=== PATIENT | male | born 1945 | race Caucasian/White ===

== ENCOUNTER 2017-05-29 23:39 | Observation (INO) | payer OTHER ==
[~2017-05-29] VITALS: Ht 180.3 cm; Wt 90.0 kg
[~2017-05-29 23:39] MED LIST: ADVAI100I PO; ASPI325T PO; ATRO17AE INH; CARV25TA OR; DUONI NEB; FURO20TA PO; LEVA750T PO; LISI-360 PO; POTA10IN2 PO; PRED10PA PO
[2017-05-29 23:42] VITALS: BP 129/66; PULSE 97; RESP 28; TEMP 98.4; O2SAT 90
[2017-05-29 23:50] VITALS: O2SAT 92
--- NOTE | 2017-05-29 23:50 | PD ---
HPI Chief Complaint: Respiratory Distress Time Seen by Provider: 23:48 Travel History International Travel<30 days: No Contact w/Intl Traveler<30days: No Traveled to known affect area: No History of Present Illness HPI 71-year-old male presents to the emergency department EMS transport from home for persistent worsening shortness of breath with history of COPD and pacemaker. Patient has medications at home providing no relief. En route to the hospital patient received Solu-Medrol and DuoNeb updrafts. No known reported fever. Patient with productive cough of yellow sputum. No report of chest pain. PFSH Past Medical History Narrative Medical No tobacco use COPD CAD pacemaker; nursing notes reviewed Arthritis: Yes Asthma: No Blood Disorders: No Anxiety: No Depression: No Heart Rhythm Problems: Yes Cancer: No Cardiovascular Problems: No High Cholesterol: No Chemotherapy: No Chest Pain: No Congestive Heart Failure: No COPD: Yes Cerebrovascular Accident: No Coronary Artery Disease: Yes Diabetes: No Diminished Hearing: No Endocrine: No GERD: No Genitourinary: No Hiatal Hernia: No Hypertension: Yes Immune Disorder: No Kidney Stones: No Musculoskeletal: No Neurologic: No Psychiatric: No Reproductive: No Respiratory: Yes Immunizations Current: Yes Migraines: No Pneumonia: Yes Radiation Therapy: No Renal Failure: No Seizures: No Sickle Cell Disease: No Sleep Apnea: No Thyroid Disease: No Ulcer: No Past Surgical History Abdominal Surgery: No AICD: Yes Arteriovenous Shunt: No Cardiac Surgery: No Ear Surgery: No Endocrine Surgery: No Eye Surgery: No Genitourinary Surgery: No Gynecologic Surgery: No Insulin Pump: No Joint Replacement: No Oral Surgery: No Pacemaker: Yes Thoracic Surgery: No Other Surgery: Yes Social History Alcohol Use: Yes (APPROX 1 CASE PER WEEK) Tobacco Use: No Substance Use: No Allergies-Medications (Allergen,Severity, Reaction): Coded Allergies: No Known Allergies (Verified Adverse Reaction, Unknown, 05/30/17) Reported Meds & Prescriptions Reported Meds & Active Scripts Active Reported Potassium Chloride ER (Potassium Chloride) 20 Meq Tab 20 Meq PO DAILY Aspirin 325 Mg Tab 325 Mg PO DAILY Vitamin D-[address] (Cholecalciferol) 1,000 Unit Tab 3,000 Units PO DAILY Albuterol Neb (Albuterol Sulfate) 2.5 Mg/3 Ml Neb 2.5 Mg NEB Q4HR NEB PRN Atorvastatin (Atorvastatin Calcium) 40 Mg Tab 40 Mg PO HS Furosemide 40 Mg Tab 40 Mg PO DAILY Lisinopril 20 Mg Tab 20 Mg PO DAILY Carvedilol 25 Mg Tab 25 Mg PO BID Advair Diskus Inh (Fluticasone-Salmeterol Inh) 100-50 Mcg/Blist Aer 1 Puff INH BID Rinse mouth after use. Review of Systems Except as stated in HPI: all other systems reviewed are Neg Physical Exam Narrative GENERAL: Well-developed well-nourished male in obvious respiratory distress with work of breathing all receiving nebulized treatment SKIN: Warm and dry. HEAD: Normocephalic. EYES: No scleral icterus. No injection or drainage. NECK: Supple, trachea midline. No JVD or lymphadenopathy. CARDIOVASCULAR: Regular rate and rhythm without murmurs, gallops, or rubs. RESPIRATORY: Breath sounds equal bilaterally diminished with expiratory wheeze throughout. No accessory muscle use. GASTROINTESTINAL: Abdomen soft, non-tender, nondistended. MUSCULOSKELETAL: No cyanosis, or edema. BACK: Nontender without obvious deformity. No CVA tenderness. Data Data Last Documented VS Vital Signs Date Time Temp Pulse Resp B/P (MAP) Pulse Ox O2 Delivery O2 Flow Rate FiO2 05/30/17 01:19 73 20 112/55 (74) 96 Nasal Cannula 3.00 05/29/17 23:42 98.4 Orders Orders Complete Blood Count With Diff (05/29/17 23:49) Comprehensive Metabolic Panel (05/29/17 23:49) B-Type Natriuretic Peptide (05/29/17 23:49) Act Partial Throm Time (Ptt) (05/29/17 23:49) Prothrombin Time / Inr (Pt) (05/29/17 23:49) Magnesium (Mg) (05/29/17 23:49) Ckmb (Isoenzyme) Profile (05/29/17 23:49) Troponin I (05/29/17 23:49) Blood Culture (05/29/17 23:49) Iv Access Insert/Monitor (05/29/17 23:49) Electrocardiogram (05/29/17 23:49) Ecg Monitoring (05/29/17 23:49) Oximetry (05/29/17 23:49) Oxygen Administration (05/29/17 23:49) Chest, Single Ap (05/29/17 23:49) Sodium Chloride 0.9% Flush (Ns Flush) (05/30/17 00:00) Albuterol-Ipratropium Neb (Duoneb Neb) (05/30/17 00:00) Lactic Acid (05/29/17 23:49) CKMB (05/29/17 23:59) CKMB% (05/29/17 23:59) Labs Laboratory Tests Test 05/29/17 23:59 White Blood Count 7.5 TH/MM3 Red Blood Count 4.99 MIL/MM3 Hemoglobin 15.8 GM/DL Hematocrit 47.2 % Mean Corpuscular Volume 94.6 FL Mean Corpuscular Hemoglobin 31.7 PG Mean Corpuscular Hemoglobin Concent 33.5 % Red Cell Distribution Width 14.0 % Platelet Count 133 TH/MM3 Mean Platelet Volume 10.2 FL Neutrophils (%) (Auto) 55.8 % Lymphocytes (%) (Auto) 21.5 % Monocytes (%) (Auto) 10.9 % Eosinophils (%) (Auto) 10.3 % Basophils (%) (Auto) 1.5 % Neutrophils # (Auto) 4.2 TH/MM3 Lymphocytes # (Auto) 1.6 TH/MM3 Monocytes # (Auto) 0.8 TH/MM3 Eosinophils # (Auto) 0.8 TH/MM3 Basophils # (Auto) 0.1 TH/MM3 CBC Comment DIFF FINAL Differential Comment Prothrombin Time 10.7 SEC Prothromb Time International Ratio 1.1 RATIO Activated Partial Thromboplast Time 22.2 SEC Blood Urea Nitrogen 18 MG/DL Creatinine 1.18 MG/DL Random Glucose 154 MG/DL Total Protein 7.2 GM/DL Albumin 3.7 GM/DL Calcium Level 8.2 MG/DL Magnesium Level 2.0 MG/DL Alkaline Phosphatase 65 U/L Aspartate Amino Transf (AST/SGOT) 26 U/L Alanine Aminotransferase (ALT/SGPT) 33 U/L Total Bilirubin 0.5 MG/DL Sodium Level 142 MEQ/L Potassium Level 5.0 MEQ/L Chloride Level 105 MEQ/L Carbon Dioxide Level 31.9 MEQ/L Anion Gap 5 MEQ/L Estimat Glomerular Filtration Rate 61 ML/MIN Lactic Acid Level 0.9 mmol/L Total Creatine Kinase 101 U/L Creatine Kinase MB 0.9 NG/ML Troponin I LESS THAN 0.02 NG/ML B-Type Natriuretic Peptide 6 PG/ML MDM Medical Decision Making Medical Screen Exam Complete: Yes Emergency Medical Condition: Yes Medical Record Reviewed: Yes Interpretation(s) EKG: Electronically ventricular paced rhythm rate 63CBC & BMP Diagram 05/29/17 23:59 Total Protein 7.2, Albumin 3.7, Calcium Level 8.2 L, Magnesium Level 2.0, Alkaline Phosphatase 65, Aspartate Amino Transf (AST/SGOT) 26, Alanine Aminotransferase (ALT/SGPT) 33, Total Bilirubin 0.5 CXR: nad Differential Diagnosis Dyspnea, exacerbation COPD, CHF, PE, pneumonia, ACS, NH Narrative Course Patient placed on cardiac rn IV access obtained patient continues to receive bronchodilator therapy has received IV Solu-Medrol prior to arrival on auscultation patient continues to have tight expiratory wheezing with diminished breath sounds After 3 additional DuoNeb updrafts lung sounds are improved but still continues to have respiratory wheezing BMP 6 not elevated cardiac enzymes within normal limits Patient continues to have wheezing and will be admitted for exacerbation of COPD after 6 updraft treatments and Solu-Medrol Physician Communication Physician Communication discussed with medicine service for admission Diagnosis Primary Impression: COPD exacerbation Dorota Reed MD May 29, 2017 23:50
[2017-05-29 23:53] VITALS: O2SAT 92
[2017-05-29] MEDS: RESP: ALBUTEROL 2.5 MG/IPRATROPIUM 0.5 MG NEB (SCH) INH (23:58)
[2017-05-30] VITALS (11 sets, daily range): BP systolic 101–120; BP diastolic 55–67; PULSE 71–88; RESP 18–24; TEMP 97.7–98.7; O2SAT 90–97
[2017-05-30] MEDS ORDERED: SODIUM CHLORIDE 0.9% FLUSH 10 ML FLUSH IVF PRN
[2017-05-30 00:26] LABS: AUTOMATED NEUTROPHIL # 4.2 TH/MM3 (1.8-7.7); BASOPHIL # 0.1 TH/MM3 (0-0.2); BASOPHIL % 1.5 % (0.0-2.0); EOSINOPHIL # 0.8 TH/MM3 (0-0.4); EOSINOPHIL % 10.3 % (0.0-4.0); HEMATOCRIT 47.2 % (39.0-51.0); HEMOGLOBIN 15.8 GM/DL (13.0-17.0); LYMPH % 21.5 % (9.0-44.0); LYMPHOCYTE # 1.6 TH/MM3 (1.0-4.8); MEAN CELL VOLUME 94.6 FL (80.0-100.0); MEAN CORPUSCULAR HEMOGLOBIN 31.7 PG (27.0-34.0); MEAN CORPUSCULAR HGB CONC 33.5 % (32.0-36.0); MEAN PLATELET VOLUME 10.2 FL (7.0-11.0); MONO % 10.9 % (0.0-8.0); MONOCYTE # 0.8 TH/MM3 (0-0.9); NEUT % 55.8 % (16.0-70.0); PLATELET COUNT 133 TH/MM3 (150-450); RED BLOOD COUNT 4.99 MIL/MM3 (4.50-5.90); WHITE BLOOD COUNT 7.5 TH/MM3 (4.0-11.0)
--- NOTE | 2017-05-30 00:34 | RADRPT ---
EXAM DATE/TIME: 05/30/2017 00:02 [place] COMPARISON: CHEST SINGLE AP, September 14, 2014, 12:43. INDICATIONS : Shortness of breath MEDICAL HISTORY : None. SURGICAL HISTORY : None. ENCOUNTER: Initial ACUITY: 1 day PAIN SCORE: 7/10 LOCATION: Bilateral chest FINDINGS: A single view of the chest demonstrates the lungs to be symmetrically aerated without evidence of mas s, infiltrate or effusion. The cardiomediastinal contours are unremarkable. Osseous structures are intact. There is a pacemaker overlying the left chest. No new or significant changes. CONCLUSION: No acute disease. No significant change has occurred. Gene Tovar MD on May 30, 2017 at 0:31 Board Certified Radiologist. This report was verified electronically.
[2017-05-30 00:37] LABS: INTERNATIONAL NORMALIZED RATIO 1.1 RATIO; PROTHROMBIN TIME - PATIENT 10.7 SEC (9.8-11.6)
[2017-05-30 00:40] LABS: ALBUMIN 3.7 GM/DL (3.4-5.0); ALT (GPT) 33 U/L (12-78); AST (GOT) 26 U/L (15-37); BICARBONATE 31.9 MEQ/L (21.0-32.0); BLOOD UREA NITROGEN 18 MG/DL (7-18); CALCIUM 8.2 MG/DL (8.5-10.1); CHLORIDE 105 MEQ/L (98-107); CREATININE 1.18 MG/DL (0.60-1.30); GLOMERULAR FILTRATION RATE 61 ML/MIN (>89); GLUCOSE,RANDOM 154 MG/DL (74-106); SODIUM (NA) 142 MEQ/L (136-145)
[2017-05-30 00:45] LABS: ALKALINE PHOSPHATASE 65 U/L (45-117); TOTAL BILIRUBIN ADULT 0.5 MG/DL (0.2-1.0); TOTAL PROTEIN 7.2 GM/DL (6.4-8.2); TROPONIN I LESS THAN 0.02 NG/ML (0.02-0.05)
[2017-05-30] MEDS ORDERED: ASPI-183 PO (01:18)
[2017-05-30] MEDS ORDERED: FURO40TA PO (01:18)
[2017-05-30] MEDS ORDERED: ADVA100A INH (01:18)
[2017-05-30] MEDS ORDERED: CARV25TA PO (01:18)
[2017-05-30] MEDS ORDERED: ATOR40TA16 PO (01:18)
[2017-05-30] MEDS ORDERED: POTA-163 PO (01:18)
[2017-05-30] MEDS ORDERED: ALBU0.08 NEB (01:18)
[2017-05-30] MEDS ORDERED: LISI-515 PO (01:18)
[2017-05-30] MEDS ORDERED: VITATAB25 PO (01:18)
[2017-05-30] MEDS ORDERED: MORPHINE SULFATE 2 MG/ML INJ IV PUSH PRN (03:30)
[2017-05-30] MEDS ORDERED: LACTULOSE SYRUP 20 GM/30 ML CUP PO PRN (03:30)
[2017-05-30] MEDS ORDERED: MAGNESIUM HYDROXIDE SUSP 30 ML CUP PO PRN (03:30)
[2017-05-30] MEDS ORDERED: BISACODYL 10 MG SUPP RECTAL PRN (03:30)
[2017-05-30] MEDS ORDERED: ONDANSETRON HCL 4 MG/2 ML VIAL IVP PRN (03:30)
[2017-05-30] MEDS ORDERED: SODIUM CHLORIDE 0.9% FLUSH 10 ML FLUSH IV FLUSH PRN (03:30)
[2017-05-30] MEDS ORDERED: RESP: ALBUTEROL 2.5 MG/IPRATROPIUM 0.5 MG NEB (PRN) NEB (03:30)
[2017-05-30] MEDS ORDERED: ACETAMINOPHEN/HYDROcodone 325 MG/5 MG TAB PO PRN (03:30)
[2017-05-30] MEDS ORDERED: SENNOSIDES 8.6 MG TAB PO PRN (03:30)
[2017-05-30] MEDS ORDERED: ACETAMINOPHEN 325 MG TAB PO PRN (03:30)
--- NOTE | 2017-05-30 04:04 | HHI.HP ---
[facility] No Primary Care Physician Admission Diagnosis exac copd Diagnoses: (1) COPD (chronic obstructive pulmonary disease) Diagnosis: Principal (2) HTN (hypertension) Diagnosis: Principal Travel History International Travel<30 Days: No Contact w/Intl Traveler <30 Da: No Traveled to Known Affected Are: No History of Present Illness This is a 71-year-old male with a PMH of COPD, CAD, HTN and h/o Pacemaker was brought to the ER by EMS secondary to SOB. Per patient, he's had progressive SOB x3 days. Worse w/ exertion, moderate severity. Associated w/ wheezing. No fever, chills, cough or chest pain. S/p Solu-Medrol and DuoNeb by EMS en route. Upon arrival to ER, pt w/ ongoing SOB and wheezing. BP 129/66, HR 97, O2 sat 90% on RA, Afebrile. CBC unremarkable except for platelets 133, previously 146 on 11/12/16. GFR 61. Troponin negative. INR 1.1. CXR with no acute findings. S/p 3 additional DuoNeb in ER w/ persistent SOB/wheezing. Review of Systems Except as stated in HPI: all other systems reviewed are Neg ROS: 14 point review of systems otherwise negative. Past Family Social History Past Medical History PMH: COPD, CAD, HTN and h/o Pacemaker Past Surgical History PAST SURGICAL HISTORY: Pacemaker Allergies: Coded Allergies: No Known Allergies (Verified Adverse Reaction, Unknown, 05/30/17) Family History PAST FAMILY HISTORY: Reviewed. No h/o DM or CAD Social History PAST SOCIAL HISTORY: Occasional alcohol. Negative for tobacco or drugs. Physical Exam Vital Signs Vital Signs Date Time Temp Pulse Resp B/P (MAP) Pulse Ox O2 Delivery O2 Flow Rate FiO2 05/30/17 01:19 73 20 112/55 (74) 96 Nasal Cannula 3.00 05/29/17 23:53 92 Nasal Cannula 3.00 05/29/17 23:53 92 Nasal Cannula 3.00 05/29/17 23:50 92 Nasal Cannula 4.00 05/29/17 23:48 94 Aerosol Mask 05/29/17 23:42 98.4 97 28 129/66 (87 90 Physical Exam PE: GENERAL: Elderly male in no acute distress. HEENT: PERRLA, EOMI. No scleral icterus or conjunctival pallor. No lid lag or facial droop. CARDIOVASCULAR: Regular rate and rhythm. No obvious murmurs to auscultation. No chest tenderness to palpation. RESPIRATORY: No obvious rhonchi. +expiratory wheezing bilaterally. Breath sounds equal bilaterally, mildly diminished at bases. GASTROINTESTINAL: Abdomen soft, non-tender, nondistended. BS normal. MUSCULOSKELETAL: Extremities without clubbing, cyanosis, or edema. No obvious deformities. NEUROLOGICAL: Awake, alert and oriented x4. No focal neurologic deficits. Moving both upper and lower extremities spontaneously. Laboratory Laboratory Tests Test 05/29/17 23:59 White Blood Count 7.5 Red Blood Count 4.99 Hemoglobin 15.8 Hematocrit 47.2 Mean Corpuscular Volume 94.6 Mean Corpuscular Hemoglobin 31.7 Mean Corpuscular Hemoglobin Concent 33.5 Red Cell Distribution Width 14.0 Platelet Count 133 Mean Platelet Volume 10.2 Neutrophils (%) (Auto) 55.8 Lymphocytes (%) (Auto) 21.5 Monocytes (%) (Auto) 10.9 Eosinophils (%) (Auto) 10.3 Basophils (%) (Auto) 1.5 Neutrophils # (Auto) 4.2 Lymphocytes # (Auto) 1.6 Monocytes # (Auto) 0.8 Eosinophils # (Auto) 0.8 Basophils # (Auto) 0.1 CBC Comment DIFF FINAL Differential Comment Prothrombin Time 10.7 Prothromb Time International Ratio 1.1 Activated Partial Thromboplast Time 22.2 Blood Urea Nitrogen 18 Creatinine 1.18 Random Glucose 154 Total Protein 7.2 Albumin 3.7 Calcium Level 8.2 Magnesium Level 2.0 Alkaline Phosphatase 65 Aspartate Amino Transf (AST/SGOT) 26 Alanine Aminotransferase (ALT/SGPT) 33 Total Bilirubin 0.5 Sodium Level 142 Potassium Level 5.0 Chloride Level 105 Carbon Dioxide Level 31.9 Anion Gap 5 Estimat Glomerular Filtration Rate 61 Lactic Acid Level 0.9 Total Creatine Kinase 101 Creatine Kinase MB 0.9 Troponin I LESS THAN 0.02 B-Type Natriuretic Peptide 6 Date/Time Source Procedure Growth Status 05/29/17 23:59 Blood Peripheral Aerobic Blood Culture Pending Received 05/29/17 23:59 Blood Peripheral Anaerobic Blood Culture Pending Received Result Diagram: 05/29/17 2359 05/29/17 2359 Caprini VTE Risk Assessment Caprini VTE Risk Assessment: No/Low Risk (score <= 1) Caprini Risk Assessment Model Point Value = 1 Point Value = 2 Point Value = 3 Point Value = 5 Age 41-60 Minor surgery BMI > 25 kg/m2 Swollen legs Varicose veins or History of unexplained or recurrent spontaneous Oral contraceptives or hormone replacement Sepsis (< 1 month) Serious lung disease, including pneumonia (< 1 month) Abnormal pulmonary function Acute myocardial infarction Congestive heart failure (< 1 month) History of inflammatory bowel disease Medical patient at bed rest Age 61-74 Arthroscopic surgery Major open surgery (> 45 min) Laparoscopic surgery (> 45 min) Malignancy Confined to bed (> 72 hours) Immobilizing plaster cast Central venous access Age >= 75 History of VTE Family history of VTE Factor V Leiden Prothrombin [id number] Lupus anticoagulant Anticardiolipin antibodies Elevated serum homocysteine Heparin-induced thrombocytopenia Other congenital or acquired thrombophilia Stroke (< 1 month) Elective arthroplasty Hip, pelvis, or leg fracture Acute spinal cord injury (< 1 month) Prophylaxis Regimen Total Risk Factor Score Risk Level Prophylaxis Regimen 0-1 Low Early ambulation 2 Moderate Order ONE of the following: *Sequential Compression Device (SCD) *Heparin 5000 units SQ BID 3-4 Higher Order ONE of the following medications: *Heparin 5000 units SQ TID *Enoxaparin/Lovenox 40 mg SQ daily (WT < 150 kg, CrCl > 30 mL/min) *Enoxaparin/Lovenox 30 mg SQ daily (WT < 150 kg, CrCl > 10-29 mL/min) *Enoxaparin/Lovenox 30 mg SQ BID (WT < 150 kg, CrCl > 30 mL/min) AND/OR *Sequential Compression Device (SCD) 5 or more Highest Order ONE of the following medications: *Heparin 5000 units SQ TID (Preferred with Epidurals) *Enoxaparin/Lovenox 40 mg SQ daily (WT < 150 kg, CrCl > 30 mL/min) *Enoxaparin/Lovenox 30 mg SQ daily (WT < 150 kg, CrCl > 10-29 mL/min) *Enoxaparin/Lovenox 30 mg SQ BID (WT < 150 kg, CrCl > 30 mL/min) AND *Sequential Compression Device (SCD) Assessment and Plan Problem List: (1) COPD (chronic obstructive pulmonary disease) ICD Code: J44.9 - Chronic obstructive pulmonary disease, unspecified (2) HTN (hypertension) ICD Code: I10 - Essential (primary) hypertension Assessment and Plan A/P: 1. COPD: Chronic Respiratory Failure w/ Acute Exacerbation. Severe. S/p Solu -Medrol and DuoNeb x6 w/ persistent SOB/wheezing. CXR w/ no acute findings, images reviewed by me. O2 sat 90% on RA on arrival, currently 96% on 3L NC. Monitor O2. Solu-Medrol q6, DuoNeb q4h and q2h prn, Symbicort, Mucinex. 2. HTN: Resume home medications, monitor BP. 3. DVT Prophylaxis: SCD/Teds. 4. Social work for d/c planning as needed. 5. Case discussed at length w/ ER physician, records/labs/imaging reviewed by me. Anne Jackson MD May 30, 2017 04:04
[2017-05-30] MEDS: methylPREDNISolone SOD SUCC 40 MG/1 ML VIAL IV PUSH SCH ×3 (06:28→17:12)
[2017-05-30] MEDS: RESP: ALBUTEROL 2.5 MG/IPRATROPIUM 0.5 MG NEB (SCH) NEB ×4 (07:42→19:42)
[2017-05-30] MEDS: FUROSEMIDE 40 MG TAB PO SCH (08:35)
[2017-05-30] MEDS: BUDESONIDE-FORMOTEROL 160/4.5 MCG INHALER INH SCH ×2 (08:35→20:36)
[2017-05-30] MEDS: guaiFENesin E.R. 600 MG TAB PO SCH ×2 (08:35→20:37)
[2017-05-30] MEDS: LISINOPRIL 20 MG TAB PO SCH (08:35)
[2017-05-30] MEDS: CARVEDILOL 12.5 MG TAB PO SCH ×2 (08:35→20:37)
[2017-05-30] MEDS: ASPIRIN 325 MG TAB PO SCH (08:35)
[2017-05-30] MEDS: DOCUSATE SODIUM 50 MG/SENNA 8.6 MG TAB PO SCH ×2 (08:36→20:37)
[2017-05-30] MEDS: SODIUM CHLORIDE 0.9% FLUSH 10 ML FLUSH IV FLUSH SCH ×2 (08:39→20:37)
--- NOTE | 2017-05-30 13:23 | HHI.PR ---
Subjective Remarks Follow up for COPD exacerbation. The patient reports feeling only slightly better today. He reports continued cough, shortness of breath, and wheezing. He denies fevers/chills. O2 sats documented stable on room air however while I was in the ER room, patient's O2 sat continued to drop to 88%. He does not feel ready for discharge. He has nebulizers and Advair at home. He does not wear oxygen at home. He does not have a adoption counselor. He sees PCP through [facility] and his intake worker is Dr. Wilder. Objective Vitals Vital Signs Date Time Temp Pulse Resp B/P (MAP) Pulse Ox O2 Delivery O2 Flow Rate FiO2 05/30/17 11:54 74 18 109/64 (79) 94 Room Air 05/30/17 07:42 96 Nasal Cannula 2.00 05/30/17 07:39 75 20 117/64 (81) 97 Nasal Cannula 3.00 05/30/17 05:09 79 18 101/58 (72) 93 Nasal Cannula 3.00 05/30/17 03:56 71 18 113/65 (81) 94 Nasal Cannula 2.00 05/30/17 01:19 73 20 112/55 (74) 96 Nasal Cannula 3.00 05/29/17 23:53 92 Nasal Cannula 3.00 05/29/17 23:53 92 Nasal Cannula 3.00 05/29/17 23:50 92 Nasal Cannula 4.00 05/29/17 23:48 94 Aerosol Mask 05/29/17 23:42 98.4 97 28 129/66 (87) 90 Result Diagram: 05/29/17 2359 05/29/17 235 Imaging Last Impressions Chest X-Ray 05/29/179 Signed Impressions: Service Date/Time: Tuesday, May 30, 2017 00:02 - CONCLUSION: No acute disease. No significant change has occurred. Gene Tovar MD Objective Remarks GENERAL: Well-developed, well-nourished male patient in [facility]. SKIN: Warm and dry. HEENT: Atraumatic. Normocephalic. Pupils equal and round. Mucous membranes pink and moist. NECK: Trachea midline. CARDIOVASCULAR: Regular rate and rhythm. No murmur appreciated. RESPIRATORY: No accessory muscle use. Significantly diminished breath sounds throughout with diffuse expiratory wheezing. GASTROINTESTINAL: Abdomen soft, non-tender, nondistended. MUSCULOSKELETAL: Extremities without clubbing, cyanosis, or edema. No obvious deformities. NEUROLOGICAL: Awake and alert. No obvious cranial nerve deficits. Motor grossly within normal limits. Normal speech. PSYCHIATRIC: Appropriate mood and affect; insight and judgment normal. Medications and IVs Current Medications Medications (Trade) Dose Ordered Sig/Leonila Route Start Time Stop Time Status Last Admin (NS Flush) 2 ml UNSCH PRN IVF 05/30/17 00:00 (Duoneb Neb) 1 ampule Q4HR WHILE AWAKE NEB NEB 05/30/17 08:00 05/30/17 11:20 (Duoneb Neb) 1 ampule Q2HR NEB PRN NEB 05/30/17 03:30 (Symbicort 160-4.5 Mcg Inh) 2 puff Q12HR INH 05/30/17 09:00 05/30/17 08:35 (Mucinex Er) 1,200 mg BID PO 05/30/17 09:00 05/30/17 08:35 (SoluMEDROL INJ) 40 mg Q6HR IV PUSH 05/30/17 06:00 05/30/17 11:54 (NS Flush) 2 ml UNSCH PRN IV FLUSH 05/30/17 03:30 (NS Flush) 2 ml BID IV FLUSH 05/30/17 09:00 05/30/17 08:39 (Zofran Inj) 4 mg Q6H PRN IVP 05/30/17 03:30 (Tylenol) 650 mg Q6H PRN PO 05/30/17 03:30 (Eldred 5-325 Mg) 1 tab Q4H PRN PO 05/30/17 03:30 (Morphine Inj) 2 mg Q3H PRN IV PUSH 05/30/17 03:30 (Felicitas-Colace) 1 tab BID PO 05/30/17 09:00 (Milk Of Magnesia Liq) 30 ml Q12H PRN PO 05/30/17 03:30 (Senokot) 17.2 mg Q12H PRN PO 05/30/17 03:30 (Dulcolax Supp) 10 mg DAILY PRN RECTAL 05/30/17 03:30 (Lactulose Liq) 30 ml DAILY PRN PO 05/30/17 03:30 (Aspirin) 325 mg DAILY PO 05/30/17 09:00 05/30/17 08:35 (Lipitor) 40 mg HS PO 05/30/17 21:00 (Coreg) 25 mg BID PO 05/30/17 09:00 05/30/17 08:35 (Lasix) 40 mg DAILY PO 05/30/17 09:00 05/30/17 08:35 (Prinivil) 20 mg DAILY PO 05/30/17 09:00 05/30/17 08:35 A/P Problem List: (1) COPD (chronic obstructive pulmonary disease) ICD Code: J44.9 - Chronic obstructive pulmonary disease, unspecified (2) HTN (hypertension) ICD Code: I10 - Essential (primary) hypertension Assessment and Plan 71-year-old male with a PMH of COPD, CAD, HTN and h/o Pacemaker was brought to the ER by EMS secondary to SOB/FOSTER x3days. Acute Hypoxic Respiratory Failure with Severe COPD Exacerbation: O2 sat dropping to 87-88% on room air. CXR images reviewed, shows no acute findings. -Continue IV Solumedrol 40mg q6h -Continue duonebs q4h leonila and q2h prn -Continue patient's Advair (converted to Symbicort in hospital) -Mucinex bid -O2 as needed, wean to maintain O2 sat >90% -without purulent cough/sputum and afebrile with no leukocytosis, will hold off on antibiotics for now -Monitor for improvement HTN/HLD/CAD: Chronic, stable. No complaints of chest pain. -Resume home medications including Coreg, Lisinopril, aspirin, statin, lasix -monitor BP, adjust antihypertensives as needed. DVT Prophylaxis: Danelle Barreto PA-C May 30, 2017 1:23 pm
--- NOTE | 2017-05-30 17:02 | EKG ---
Date Performed: 05/29/2017 Time Performed: 23:50:27 PTAGE: 71 years EKG: Sinus rhythm WITH P WAVE SYNCHRONOUS VENTRICULAR PACING FUSION COMPLEXES PACING IS NEW FROM THE PRIOR TRACING ABN ORMAL RHYTHM ECG PREVIOUS TRACING : 09/14/14 @ 1129 DOCTOR: Rom Whitaker Interpretating Date/Time 05/30/2017 17:01:32
[2017-05-30] MEDS ORDERED: ATORVASTATIN 40 MG TAB PO SCH (21:00)
[2017-05-30] MEDS ORDERED: ENOXAPARIN SODIUM 40 MG/0.4 ML SYRINGE SQ SCH (21:00)
[2017-05-31] MEDS: methylPREDNISolone SOD SUCC 40 MG/1 ML VIAL IV PUSH SCH ×3 (00:43→12:00)
[2017-05-31 05:26] VITALS: BP 112/62; PULSE 68; RESP 18; TEMP 97.9; O2SAT 94
[2017-05-31] MEDS: RESP: ALBUTEROL 2.5 MG/IPRATROPIUM 0.5 MG NEB (SCH) NEB ×2 (07:45→11:28)
[2017-05-31 07:47] VITALS: O2SAT 95
[2017-05-31] MEDS ORDERED: Albuterol-Ipratropium Neb NEB (07:51)
[2017-05-31] MEDS ORDERED: PRED10PA2 PO (07:51)
[2017-05-31] MEDS ORDERED: VENTAER INH (07:52)
--- NOTE | 2017-05-31 07:53 | HHI.DCPOC ---
Discharge Care Plan Diagnosis: (1) HLD (hyperlipidemia) (2) COPD (chronic obstructive pulmonary disease) (3) HTN (hypertension) Your Health Problems Are: Cough Shortness of Breath Goals to Promote Your Health * To prevent worsening of your condition and complications * To maintain your health at the optimal level Directions to Meet Your Goals Take your medications as prescribed Follow your dietary instruction Follow activity as directed Keep your appointments as scheduled Take your immunizations and boosters as scheduled If your symptoms worsen call your PCP, if no PCP go to Urgent Care Center or Emergency Room Smoking is Dangerous to Your Health. Avoid second hand smoke Call the 24-hour hour crisis hotline for domestic abuse at Danelle Nicholas PA-C May 31, 2017 7:53 am
[2017-05-31 08:17] VITALS: BP 106/61; PULSE 66; RESP 18; TEMP 98; O2SAT 95
[2017-05-31 08:27] VITALS: PULSE 74
[2017-05-31 08:43] LABS: AUTOMATED NEUTROPHIL # 13.5 TH/MM3 (1.8-7.7); BASOPHIL % 0.1 % (0.0-2.0); HEMATOCRIT 45.7 % (39.0-51.0); HEMOGLOBIN 15.5 GM/DL (13.0-17.0); LYMPH % 4.1 % (9.0-44.0); LYMPHOCYTE # 0.6 TH/MM3 (1.0-4.8); MEAN CELL VOLUME 94.2 FL (80.0-100.0); MEAN CORPUSCULAR HEMOGLOBIN 31.9 PG (27.0-34.0); MEAN CORPUSCULAR HGB CONC 33.9 % (32.0-36.0); MEAN PLATELET VOLUME 9.9 FL (7.0-11.0); MONO % 3.6 % (0.0-8.0); MONOCYTE # 0.5 TH/MM3 (0-0.9); NEUT % 92.2 % (16.0-70.0); PLATELET COUNT 144 TH/MM3 (150-450); RED BLOOD COUNT 4.85 MIL/MM3 (4.50-5.90); RED CELL DISTRIBUTION WIDTH 13.9 % (11.6-17.2); WHITE BLOOD COUNT 14.6 TH/MM3 (4.0-11.0)
[2017-05-31 08:59] LABS: ALBUMIN 3.8 GM/DL (3.4-5.0); ALKALINE PHOSPHATASE 58 U/L (45-117); ALT (GPT) 29 U/L (12-78); AST (GOT) 9 U/L (15-37); BICARBONATE 31.8 MEQ/L (21.0-32.0); BLOOD UREA NITROGEN 29 MG/DL (7-18); CALCIUM 8.9 MG/DL (8.5-10.1); CHLORIDE 102 MEQ/L (98-107); CREATININE 1.02 MG/DL (0.60-1.30); GLOMERULAR FILTRATION RATE 72 ML/MIN (>89); GLUCOSE,RANDOM 130 MG/DL (74-106); SODIUM (NA) 139 MEQ/L (136-145); TOTAL BILIRUBIN ADULT 0.4 MG/DL (0.2-1.0); TOTAL PROTEIN 7.1 GM/DL (6.4-8.2)
[2017-05-31] MEDS: DOCUSATE SODIUM 50 MG/SENNA 8.6 MG TAB PO SCH (09:00)
[2017-05-31] MEDS: BUDESONIDE-FORMOTEROL 160/4.5 MCG INHALER INH SCH (09:00)
[2017-05-31] MEDS: ASPIRIN 325 MG TAB PO SCH (10:19)
[2017-05-31] MEDS: FUROSEMIDE 40 MG TAB PO SCH (10:19)
[2017-05-31] MEDS: LISINOPRIL 20 MG TAB PO SCH (10:19)
[2017-05-31] MEDS: CARVEDILOL 12.5 MG TAB PO SCH (10:20)
[2017-05-31] MEDS: guaiFENesin E.R. 600 MG TAB PO SCH (10:20)
[2017-05-31] MEDS: SODIUM CHLORIDE 0.9% FLUSH 10 ML FLUSH IV FLUSH SCH (10:20)
[2017-05-31 11:16] VITALS: BP 107/63; PULSE 75; RESP 16; TEMP 97.9; O2SAT 97
--- NOTE | 2017-05-31 12:04 | HHI.PR ---
Subjective Remarks Ambulating in the room without problems. No sob. Satting well on room air. Less sob says she feels much betetr says he has meds at home.No fever ro chills. No cough. Denies cp. Objective Vitals Vital Signs Date Time Temp Pulse Resp B/P (MAP) Pulse Ox O2 Delivery O2 Flow Rate FiO2 05/31/17 11:16 97.9 75 16 107/63 (78) 97 05/31/17 08:27 74 05/31/17 08:17 98.0 66 18 106/61 (76) 95 05/31/17 07:47 95 Nasal Cannula 3.00 05/31/17 05:26 97.9 68 18 112/62 (79) 94 05/30/17 21:34 98.7 88 18 120/65 (83) 92 05/30/17 19:44 94 Nasal Cannula 3.00 05/30/17 16:41 97.7 88 20 111/57 (75) 92 05/30/17 16:23 05/30/17 15:40 74 24 108/59 (75) 90 Room Air 05/30/17 13:26 82 20 107/67 (80) 92 Room Air Result Diagram: 05/31/17 0800 05/31/17 0800 Imaging Last Impressions Chest X-Ray 05/29/17 2349 Signed Impressions: Service Date/Time: Tuesday, May 30, 2017 00:02 - CONCLUSION: No acute disease. No significant change has occurred. Gene Tovar MD Objective Remarks GENERAL: Well-developed, well-nourished male patient in [facility]. CARDIOVASCULAR: Regular rate and rhythm. No murmur appreciated. RESPIRATORY: No accessory muscle use. Significantly diminished breath sounds throughout with diffuse expiratory wheezing. GASTROINTESTINAL: Abdomen soft, non-tender, nondistended. MUSCULOSKELETAL: Extremities without clubbing, cyanosis, or edema. No obvious deformities. NEUROLOGICAL: Awake and alert. No obvious cranial nerve deficits. Motor grossly within normal limits. Normal speech. PSYCHIATRIC: Appropriate mood and affect; insight and judgment normal. A/P Problem List: (1) COPD (chronic obstructive pulmonary disease) ICD Code: J44.9 - Chronic obstructive pulmonary disease, unspecified (2) HTN (hypertension) ICD Code: I10 - Essential (primary) hypertension Assessment and Plan 71-year-old male with a PMH of COPD, CAD, HTN and h/o Pacemaker was brought to the ER by EMS secondary to SOB/FOSTER x3days. Acute Hypoxic Respiratory Failure with Severe COPD Exacerbation: O2 sat dropping to 87-88% on room air. CXR images reviewed, shows no acute findings. Received Solumedrol taper. Continue duonebs q4h kaitlyn and q2h prn Continue patient's Advair (converted to Symbicort in hospital) Mucinex bid O2 as needed, wean to maintain O2 sat >90% Without purulent cough/sputum and afebrile with no leukocytosis, will hold off on antibiotics for now Monitor for improvement HTN/HLD/CAD: Chronic, stable. No complaints of chest pain. Resume home medications including Coreg, Lisinopril, aspirin, statin, lasix Monitor BP, adjust antihypertensives as needed. Improved, DC in stable condition to follow up as OP with PCP and consultants Edith Muse MD May 31, 2017 12:04
--- NOTE | 2017-06-02 22:45 | HHI.DS ---
Discharge Summary Admission Date May 30, 2017 at 03:18 Discharge Date: May 31, 2017 Admitting Diagnosis exac copd (1) COPD (chronic obstructive pulmonary disease) ICD Code: J44.9 - Chronic obstructive pulmonary disease, unspecified (2) HTN (hypertension) ICD Code: I10 - Essential (primary) hypertension Procedures none Brief History - From Admission This is a 71-year-old male with a PMH of COPD, CAD, HTN and h/o Pacemaker was brought to the ER by EMS secondary to SOB. Per patient, he's had progressive SOB x3 days. Worse w/ exertion, moderate severity. Associated w/ wheezing. No fever, chills, cough or chest pain. S/p Solu-Medrol and DuoNeb by EMS en route. Upon arrival to ER, pt w/ ongoing SOB and wheezing. BP 129/66, HR 97, O2 sat 90% on RA, Afebrile. CBC unremarkable except for platelets 133, previously 146 on 11/12/16. GFR 61. Troponin negative. INR 1.1. CXR with no acute findings. S/p 3 additional DuoNeb in ER w/ persistent SOB/wheezing. CBC/BMP: 05/31/17 0800 05/31/17 0800 Significant Findings Laboratory Tests Test 05/31/17 08:00 White Blood Count 14.6 TH/MM3 (4.0-11.0) Platelet Count 144 TH/MM3 (150-450) Neutrophils (%) (Auto) 92.2 % (16.0-70.0) Lymphocytes (%) (Auto) 4.1 % (9.0-44.0) Neutrophils # (Auto) 13.5 TH/MM3 (1.8-7.7) Lymphocytes # (Auto) 0.6 TH/MM3 (1.0-4.8) Blood Urea Nitrogen 29 MG/DL (7-18) Random Glucose 130 MG/DL (74-106) Aspartate Amino Transf (AST/SGOT) 9 U/L (15-37) Estimat Glomerular Filtration Rate 72 ML/MIN (>89) Imaging Last Impressions Chest X-Ray 05/29/17 2349 Signed Impressions: Service Date/Time: Tuesday, May 30, 2017 00:02 - CONCLUSION: No acute disease. No significant change has occurred. Gene Tovar MD PE at Discharge GENERAL: Well-developed, well-nourished male patient in NAD. CARDIOVASCULAR: Regular rate and rhythm. No murmur appreciated. RESPIRATORY: No accessory muscle use. Significantly diminished breath sounds throughout with diffuse expiratory wheezing. GASTROINTESTINAL: Abdomen soft, non-tender, nondistended. MUSCULOSKELETAL: Extremities without clubbing, cyanosis, or edema. No obvious deformities. NEUROLOGICAL: Awake and alert. No obvious cranial nerve deficits. Motor grossly within normal limits. Normal speech. PSYCHIATRIC: Appropriate mood and affect; insight and judgment normal. Hospital Course 71-year-old male with a PMH of COPD, CAD, HTN and h/o Pacemaker was brought to the ER by EMS secondary to SOB/FOSTER x3days. Acute Hypoxic Respiratory Failure with Severe COPD Exacerbation: O2 sat dropping to 87-88% on room air. CXR images reviewed, shows no acute findings. Received Solumedrol taper. Prednisone tapered at DC Continue duonebs q4h kaitlyn and q2h prn Continue patient's Advair (converted to Symbicort in hospital) Mucinex bid O2 as needed, wean to maintain O2 sat >90% Without purulent cough/sputum and afebrile with no leukocytosis, will hold off on antibiotics for now Monitor for improvement HTN/HLD/CAD: Chronic, stable. No complaints of chest pain. Resume home medications including Coreg, Lisinopril, aspirin, statin, lasix Monitor BP, adjust antihypertensives as needed. Improved, DC in stable condition to follow up as OP with PCP and consultants Pt Condition on Discharge: Stable Discharge Disposition: Discharge Home Discharge Time: > 30 minutes Discharge Instructions DIET: Follow Instructions for: Heart Healthy Diet Activities you can perform: Regular-No Restrictions Follow up Referrals: PCP Follow-up - 2-3 Days New Medications: Albuterol 18 GM Inh (Ventolin Hfa 18 GM Inh) 90 Mcg/Act Aer 2 PUFF INH Q2HR PRN for SHORTNESS OF BREATH, #1 INHALER 0 Refills Prednisone (48) 10 mg tab Dose Pack (Prednisone (48) 10 mg tab Dose Pack) 10 Mg Dspk 10 MG PO DIRECTED for Inflammation, #1 DSPK 0 Refills [Albuterol-Ipratropium Neb] () 1 AMPULE NEBU 1 AMPULE NEB Q4HR WHILE AWAKE NEB for COPD, #180 NEBULE Continued Medications: Aspirin (Aspirin) 325 Mg Tab 325 MG PO DAILY, #30 TAB 0 Refills Atorvastatin (Atorvastatin) 40 Mg Tab 40 MG PO HS for Cholesterol Management, #30 TAB 0 Refills Carvedilol (Carvedilol) 25 Mg Tab 25 MG PO BID, #60 TAB 0 Refills Cholecalciferol (Vitamin D-[address]) 1,000 Unit Tab 3000 UNITS PO DAILY for Nutritional Supplement, #1 BOTTLE 0 Refills Fluticasone-Salmeterol Inh (Advair Diskus Inh) 100-50 Mcg/Blist Aer 1 PUFF INH BID for Asthma Management, #1 INHALER 0 Refills Rinse mouth after use. Furosemide (Furosemide) 40 Mg Tab 40 MG PO DAILY, #30 TAB 0 Refills Lisinopril (Lisinopril) 20 Mg Tab 20 MG PO DAILY, #30 TAB 0 Refills Potassium Chloride ER (Potassium Chloride ER) 20 Meq Tab 20 MEQ PO DAILY for Electrolyte Replacement, #30 TAB 0 Refills Discontinued Medications: Albuterol Neb (Albuterol Neb) 2.5 Mg/3 Ml Neb 2.5 MG NEB Q4HR NEB PRN for SHORTNESS OF BREATH, #60 NEBULE 0 Refills Edith Muse MD Jun 02, 2017 22:45
== END 2017-05-31 13:22 | disposition home or self-care (01) ==
LOC: NEPC 23:39 → NEDA 05-30 03:18 → NEDH 05-30 15:25 → NEPGCP 05-30 16:34
PROVIDERS: ADMIT Hospitalist; ATTEND Hospitalist
DX: J44.1 Chronic obstructive pulmonary disease with (acute) exacerbation (principal); J96.21 Acute and chronic respiratory failure with hypoxia; I10 Essential (primary) hypertension; I25.10 Atherosclerotic heart disease of native coronary artery without angina pectoris; E78.5 Hyperlipidemia, unspecified; R94.31 Abnormal electrocardiogram [ECG] [EKG]; M19.90 Unspecified osteoarthritis, unspecified site; Z79.899 Other long term (current) drug therapy; Z95.0 Presence of cardiac pacemaker
CPT/HCPCS: 71045; 80053; 82550; 82552; 83605; 83735; 83880; 84484; 85025; 85610; 85730; 87040; 93005; 94618; 94640; 94664; 96372; 96374; 96376; 99285; G0378; J1650; J2920